=== PATIENT | female | born 1980 ===

== ENCOUNTER 2017-06-24 00:57 | Inpatient (IN) | payer MEDICAID, SELFPAY ==
[2017-06-24 01:16] VITALS: BMI 31.8
[2017-06-24] MEDS ORDERED: Lidocaine 1% Inj (20ml) ONE (01:29)
[2017-06-24] MEDS ORDERED: Oxytocin 30 UNITS in Sodium Chloride 0.9% 500 ML IV SCH (01:30)
[2017-06-24] MEDS ORDERED: Oxytocin 30 units/LR 500ML 30 UNITS/500 ML BAG IV SCH (01:30)
--- NOTE | 2017-06-24 02:01 | OBADHP ---
Datetime: 06/24/2017 01:56 Admit Comment, IP Provider: 46-year-old [id number] at approximately 39 weeks gestational age presented t o [employer] contractions and fully dilated. Patient did not have any records for review. Past medical history denies Past surgical history denies Medications vitamins No known drug allergies Obstetrical history full-term normal spontaneous vaginal delivery 2 Social history no tobacco, no drugs, no alcohol Physical exam: Deferred physical exam findings Assessment: 39 weeks gestational age with precipitous labor Plan: Admit to labor and delivery for management. Pelvic Type - PN: Adequate Extremities - PN: Normal Abdomen - PN: Normal Back - PN: Normal Breast - PN: Normal Lungs - PN: Normal Heart - PN: Normal Thyroid - PN: Normal Neurologic - PN: Normal HEENT - PN: Normal General - PN: Normal FHR - Baseline A Provider: 120s-130s Vital Signs Provider: Reviewed; Within Normal Limits IP Chief Complaint: Uterine contractions NICHD Variability Prov Fetus A: Moderate 6-25bpm Dilatation, Provider: 10 Effacement, Provider: 100 Station, Provider: 2 Genitourinary Exam: Normal DTRs - PN: Normal IP Adm Impression: Active labor IP Admit Plan: Admit to unit; Initiate labor protocol
--- NOTE | 2017-06-24 02:19 | OBDS ---
MATERNAL INFORMATION Provider Comments: Normal spontaneous vaginal delivery. Patient delivered viable male with Apgars of 9 and 9 at one and 5 minutes respectively. Inf ant delivered via hands/compound presentation. Placenta delivered spontaneously. Lacerations repaired , as above. Uterus firm and appropriately hemostatic following delivery. Patient tolerated delivery a nd repair well. No complications. Estimated blood loss 300 mL VAGINAL DELIVERY Episiotomy: None Laceration Extension: First Degree Laceration Type: Perineal; Periurethral Laceration Repair Note: First-degree perineal laceration and first-degree clitoral laceration. Area is infiltrated with 1% lidocaine. Lacerations repaired with 2. 0 repeat without complication. Patient tolerated well.
[2017-06-24] MEDS ORDERED: Benzocaine/Menthol SPRAY TOP PRN (03:06)
[2017-06-24] MEDS ORDERED: Oxycodone/Acetaminophen 5/325 mg Tab PO PRN ×4 (03:06→07:08)
[2017-06-24 03:08] LABS: BASO # 0.1 K/uL (0.0-0.2); BASO % 0.6 % (0.0-2.0); EOS # 0.4 K/uL (0.0-0.7); HEMOGLOBIN 12.1 g/dL (12.0-16.0); LYMPH # 3.6 K/uL (1.0-4.3); LYMPH % 27.8 % (20.0-40.0); MEAN CORPUSCULAR HEMOGLOBIN 28.7 pg (27.0-31.0); MEAN CORPUSCULAR HGB CONC 33.3 g/dL (33.0-37.0); MEAN PLATELET VOLUME 9.2 fl (7.2-11.7); MONO # 1.1 K/uL (0.0-0.8); MONO % 8.6 % (0.0-10.0); NEUT # 7.8 K/uL (1.8-7.0); NRBC % 0.2 % (0.0-0.0); RBC 4.23 Mil/uL (3.80-5.20); RED CELL DISTRIBUTION WIDTH 14.1 % (11.5-14.5); WHITE BLOOD COUNT 12.9 K/uL (4.8-10.8)
[2017-06-24 07:03] VITALS: TEMP 98.3
[2017-06-24] MEDS: Benzocaine/Menthol SPRAY TOP PRN (08:16)
[2017-06-24] MEDS: Multivitamin With Minerals Tab PO SCH (08:16)
[2017-06-24] MEDS ORDERED: Multivitamin With Minerals Tab PO SCH (09:00)
[2017-06-25 06:31] LABS: BASO # 0.1 K/uL (0.0-0.2); BASO % 1.2 % (0.0-2.0); EOS # 0.5 K/uL (0.0-0.7); EOS % 4.5 % (0.0-4.0); HEMOGLOBIN 9.1 g/dL (12.0-16.0); LYMPH # 3.2 K/uL (1.0-4.3); LYMPH % 29.7 % (20.0-40.0); MEAN CELL VOLUME 86.2 fl (81.0-99.0); MEAN CORPUSCULAR HEMOGLOBIN 29.7 pg (27.0-31.0); MEAN CORPUSCULAR HGB CONC 34.5 g/dL (33.0-37.0); MEAN PLATELET VOLUME 8.8 fl (7.2-11.7); MONO # 0.8 K/uL (0.0-0.8); MONO % 7.5 % (0.0-10.0); NEUT # 6.2 K/uL (1.8-7.0); NEUT % 57.1 % (50.0-75.0); NRBC % 0.1 % (0.0-0.0); RBC 3.07 Mil/uL (3.80-5.20); RED CELL DISTRIBUTION WIDTH 13.9 % (11.5-14.5); WHITE BLOOD COUNT 10.9 K/uL (4.8-10.8)
--- NOTE | 2017-06-25 07:41 | OBPPN ---
Datetime: 06/25/2017 06:20 PP Pain Prov: Within normal limits PP Nausea Prov: Denies PP Flatus Prov: Yes PP BM Prov: No PP Heart Prov: Normal PP Lungs Prov: Normal PP Abdomen/Uterus Prov: Normal PP CVA Tenderness Prov: Normal PP Extremities Prov: Normal PP Impression Prov: Normal progression PP Plan Prov: Continue present management PP Progress Note Prov: PPD 1 36 y/o female now on PPD 1 seen and examined at bedside this morning. No overnight events. Reports pain is controlled with pain medications. Voiding freely w/o blood noted. Pt reports passing gas per rectum but no BM yet. Ambulating well w/o dizziness. Lochia is similar to menses volume. Pt is and bottle feeding the baby w/o difficulty. Denies nausea, vomiting, fever, chills, chest pain or calf pain. Pt does not desire circumcision for the baby. Physical Exam: General: A_O, resting comfortably in bed, NAD HEENT: oral mucosa moist. Lungs: CTA B/L, no wheezing, rhonchi or rales CVS: RRR, S1, S2 ABD: ND, +BS, firm fundus @ umbilical level. Soft, appropriate TTP. EXT: no edema, negative Juliana's sign, Neuro/psych: AAOX3. assessment: 36 y/o female now doing well on PPD 1 Plan: OOB w/ caution Regular diet Percocet and Ibuprofen for pain management Senokot for constipation consult for Encourage and ambulation Anticipate discharge tomorrow Sultan Bustamante, PGY1 OB Hospitalist Addendum: Pt seen and examined by me. Agree w above. PPD 1 s/p , doing well, br east and bottle feeeding. Continue current care. (ES) Vital Signs Provider PP: Reviewed
[2017-06-25] MEDS: Multivitamin With Minerals Tab PO SCH (09:14)
[2017-06-25] MEDS: Benzocaine/Menthol SPRAY TOP PRN (22:40)
[2017-06-26] MEDS: Multivitamin With Minerals Tab PO SCH (08:24)
--- NOTE | 2017-06-26 11:31 | OBPPN ---
Datetime: 06/26/2017 06:45 PP Pain Prov: Within normal limits PP Nausea Prov: Denies PP Flatus Prov: Yes PP BM Prov: Yes PP Heart Prov: Normal PP Lungs Prov: Normal PP Abdomen/Uterus Prov: Normal PP Lochia Prov: Normal PP CVA Tenderness Prov: Normal PP Extremities Prov: Normal PP Impression Prov: Normal progression PP Plan Prov: Discharge PP Progress Note Prov: PPD 2 36 y/o female now on PPD 2 seen and examined at bedside this morning. Reports pain is cont rolled with pain medications. Pt reports BM last night and voiding freely. Ambulating well w/o dizzi ness. Lochia is similar to menses volume. Pt is and bottle feeding the baby w/o difficu lty. Denies nausea, vomiting, fever, chills, chest pain or calf pain. Pt does not desire circumcision for the baby. Physical Exam: General: A_O, resting comfortably in bed, NAD HEENT: oral mucosa moist. Lungs: CTA B/L, no wheezing, rhonchi or rales CVS: RRR, S1, S2 ABD: ND, +BS, firm fundus @ umbilical level. Soft, appropriate TTP. EXT: no edema, negative Juliana's sign, Neuro/psych: AAOX3. Assessment: 36 y/o female now doing well on PPD 2 Plan: Discharge to home today PNV 1 PO qdaily Ibuprofen 600 mg 1 tab po prn q6 if moderate/severe pain Encourage . Ambulation with caution,nothing per vaginal, no heavy lifting, if excessive bleeding or fever w/o relief from pain medication go to ED. Follow up at your clinic on 07/31/17 at 10:30 am for visit. Sultan Bustamante, PGY-1 Case d/w on-call OB hospitalist OB Hospitalist note. Pt seen on r[facility]ice[facility] this morning. Agree with PGY1 note MAHNDO Vital Signs Provider PP: Reviewed
--- NOTE | 2017-06-26 11:34 | OBDCSUM ---
Datetime: 06/26/2017 06:48 Discharged to, Provider: Home Follow up at, Provider: Nelli Sandra Disch Instr Activity: May be up to bathroom; May be up for meals; May Shower Disch Instr Diet: Regular Discharge Instructions, Provider: Routine instructions given Discharge Diagnosis, Provider: Term Delivered Follow up in weeks, Provider: on 07/31/17 at 10:30 am Contraception discussed, Prov: Yes Disch Activity Restrictions: No exercising; No lifting; Minimize stair-climbing; No sexual activity; Nothing in vagina - [place], tampons, douche Discharge Comment, Provider: Discharge to home today Take vitamin daily take ibuprofen 600 mg 1 tab every 6 hours as needed for pain Encourage . Ambulation with caution,nothing per vaginal, no heavy lifting, if excessive bleeding or fever w/o relief from pain medications go to ED. Follow up at your clinic on 07/31/17 at 10:30 am for visit. Rub[facility] OB Hospitalist note. Pt seen on carlita this morning. Agree with PGY1 note MAHNDO Contraception after Delivery: Foam/Condoms
[2017-06-26 18:19] VITALS: BP 111/68; PULSE 88; RESP 20
== END 2017-06-26 13:35 | disposition home or self-care (01) | DRG 373 ==
LOC: H.EROB2 00:57 → H.L&D 01:15 → H.OB/GYN 07:33
PROVIDERS: ADMIT Obstetrics & Gynecology; ATTEND Obstetrics & Gynecology
PROC: 10E0XZZ Delivery of Products of Conception, External Approach (ICD-10-PCS; principal; 2017-06-24)
PROC: 4A1HXCZ Monitoring of Products of Conception, Cardiac Rate, External Approach (ICD-10-PCS; 2017-06-24)
PROC: 0HQ9XZZ Repair Perineum Skin, External Approach (ICD-10-PCS; 2017-06-24)
DX: O32.6XX0 Maternal care for compound presentation, not applicable or unspecified (principal); O62.3 Precipitate labor; Z37.0 Single live birth; Z3A.39 39 weeks gestation of pregnancy; O70.0 First degree perineal laceration during delivery